=== PATIENT | male | born 1995 | race Caucasian/White ===

== ENCOUNTER 2018-11-30 19:34 | Emergency (ER) | payer OTHER ==
[~2018-11-30] VITALS: Ht 172.7 cm; Wt 89.9 kg
[2018-11-30 19:55] VITALS: Ht 172.7 cm; Wt 89.9 kg
--- NOTE | 2018-11-30 22:29 | ERD ---
ER Documentation Chief Complaint Chief Complaint SOB on/off X 2 days, R throat irritation HPI Patient is a 23-year-old male, no past medical history, presents the ER for concerns of throat pain as well as shortness of breath 2 days. Patient reports pain to his right tonsil. He denies any drooling, trismus or hyper extension of his neck. Patient has no fevers or chills. Patient does not have a cough. Patient also states he feels short of breath when taking a deep breath. Patient denies any chest pain, left upper extremity pain, abdominal pain, diaphoresis, nausea, vomiting or LOC. Patient denies any recent travel, recent surgeries, history of DVT or PE. No sick contacts. ROS All systems reviewed and are negative except as per history of present illness. Medications Home Meds Active Scripts Benzocaine/Menthol* (Cepacol* Sore Throat Lozenges) 1 Each Lozenge, 1 EACH MM q2h PRN for SORE THROAT, #20 [place] Prov:GILLIAN LIRIANO PA-C 11/30/18 Ibuprofen* (Motrin*) 600 Mg Tab, 600 MG PO Q6, #30 TAB Prov:GILLIAN LIRIANO PA-C 11/30/18 Allergies Allergies: Coded Allergies: No Known Allergy (Unverified , 11/30/18) FmHx Family History: No diabetes Physical Exam Vitals Vital Signs Date Temp Pulse Resp B/P (MAP) Pulse Ox O2 O2 Flow FiO2 Time Delivery Rate 11/30/18 98.5 71 18 132/81 98 19:55 (98) Physical Exam GENERAL: Well-developed, well-nourished male. Appears in no acute distress. He in full sentences. HEAD: Normocephalic, atraumatic. No deformities or ecchymosis. EYE: Pupils equal, round, and reactive to light. EOMs intact. No conjunctival erythema. No eye discharge. ENT: External ear without any masses or tenderness. Auditory canals clear bilaterally. TM visualized bilaterally, non-erythematous, non-bulging. Nasal mucosa pink with no discharge. Oropharynx is pink without any tonsillar erythema or exudates. No uvula deviation. No kissing tonsils. NECK: Supple. No meningismus. Normal ROM of the neck. LUNG: Clear to auscultation bilaterally. No rhonchi, wheezing, rales or coarse breath sounds. HEART: Regular rate and rhythm. No murmurs, rubs or gallops. Equal pulses in bilateral upper extremities. EXTREMITES: Equal pulses bilaterally. No peripheral clubbing, cyanosis or edema. No unilateral leg swelling. NEUROLOGIC: Alert and oriented to person, place and time. Moving all four extremities. 5/5 strength in all extremities. Normal speech. Steady gait. SKIN: Normal color. Warm and dry. No rashes or lesions. Procedures/MDM ED COURSE: The patient was stable throughout ED course. I kept the patient and/or family informed of laboratory and diagnostic imaging results throughout the ED course. EKG: Read by Dr. Moore, attending physician. EKG shows normal sinus rhythm at a rate of 60 bpm No arrhythmias, acute ST elevations or T wave changes were noted. DIAGNOSTIC IMAGING: Read by radiologist. Patient: VICTORINO MEHTA : 1995 Age: 23 Sex: M MR #: [id number] DOS: 11/30/18 2223 Ordering MD: GILLIAN LIRIANO PA-C Location: [facility] Room/Bed: PROCEDURE: Chest. CLINICAL INDICATION: Shortness of breath. TECHNIQUE: Single frontal view of the chest was obtained. COMPARISON: None. FINDINGS: The cardiac silhouette is within normal limits. The aortic arch is unremarkable. There is no focal consolidation, vascular congestion or pleural effusion. There is no pneumothorax. IMPRESSION: No evidence for active cardiopulmonary disease. .Doni Maloney MD, MD Date Time Electronically viewed and signed by .Doni Maloney MD, MD on 11/30/2018 23:14 .T/ CC: GILLIAN LIRIANO PA-C [id number] MEDICAL DECISION MAKING: This is a 20-year-old male who presents the ER for concerns of throat pain and shortness of breath x2 days. Vital signs were reviewed. Patient was afebrile. Patient was not hypoxic. ENT exam was normal. Lung exam was normal. Chest x- ray was unremarkable. See formal report above. Given these findings, the patient's presentation is most consistent with viral pharyngitis and shortness of breath. PERC score 0. Low suspicion for pneumothorax, ACS, arrhythmia, pericarditis, PE, aortic dissection, pneumonia, meningitis, sinusitis, otitis externa, acute otitis media, strep pharyngitis, epiglottitis or peritonsillar abscess. PRESCRIPTIONS: Cepacol throat lozenges, ibuprofen DISCHARGE: At this time, patient is stable for discharge and outpatient management. Supportive therapies such as OTC throat lozenges, salt water gurgles, popsicles and jello discussed. I have instructed the patient to follow-up with his/her primary care physician in 1-2 days. I have instructed the patient to promptly return to the ER for any new or worsening symptoms including increased pain, swelling, fever, nausea, vomiting, weakness or difficulty breathing. The patient and/or family expressed understanding of and agreement with this plan. All questions were answered. Home care instructions were provided. Disclaimer: Inadvertent spelling and grammatical errors are likely due to EHR/dictation software use and do not reflect on the overall quality of patient care. Also, please note that the electronic time recorded on this note does not necessarily reflect the actual time of the patient encounter. Departure Diagnosis: Primary Impression: Pharyngitis Pharyngitis/tonsillitis etiology: unspecified etiology Qualified Codes: J02.9 - Acute pharyngitis, unspecified Additional Impression: Shortness of breath Condition: Fair Patient Instructions: Pharyngitis, Viral Additional Instructions: Call your primary care doctor TOMORROW for an appointment during the next 1-2 days.See the doctor sooner or return here if your condition worsens before your appointment time. GILLIAN LIRIANO PA-C Nov 30, 2018 22:29
[2018-11-30] MEDS ORDERED: IBUP-1542 PO (23:21)
[2018-11-30] MEDS ORDERED: BENZ1LOZ52 MM (23:21)
[2018-11-30 23:46] VITALS: BP 123/80; PULSE 58; RESP 18
== END 2018-11-30 23:47 | disposition home or self-care (01) ==
LOC: FTE 19:34
DX: J02.9 Acute pharyngitis, unspecified (principal)
CPT/HCPCS: 71045; 93005; Z7502

== ENCOUNTER 2018-12-05 08:51 | Emergency (ER) | payer SELFPAY ==
[~2018-12-05 08:51] MED LIST: BENZ1LOZ52 MM; IBUP-1542 PO
== END 2018-12-05 11:30 | disposition left against medical advice (07) ==
LOC: E/R 08:51
DX: Z53.21 Procedure and treatment not carried out due to patient leaving prior to being seen by health care provider (principal)